=== PATIENT | male | born 2000 | race Hispanic/Latino ===

== ENCOUNTER 2021-06-24 19:30 | Emergency (ER) | payer SELFPAY ==
[~2021-06-24] VITALS: Ht 175.3 cm; Wt 77.0 kg
[2021-06-24] MEDS ORDERED: GENTAMICIN SULF5 ML OD (20:32)
[2021-06-24 20:45] VITALS: BP 136/89
== END 2021-06-24 20:45 | disposition home or self-care (01) | DRG 125 ==
LOC: EDBD 19:30 → ED 19:30
DX: S05.01XA Injury of conjunctiva and corneal abrasion without foreign body, right eye, initial encounter (principal); X58.XXXA Exposure to other specified factors, initial encounter; Y92.89 Other specified places as the place of occurrence of the external cause; Y99.0 Civilian activity done for income or pay